=== PATIENT | male | born 1940 | race Caucasian/White ===

== ENCOUNTER → 2018-11-14 | Outpatient (CLI) | payer MEDICARE, BC ==
--- NOTE | 2018-11-14 14:39 | KCIC ---
Bilateral diagnostic digital mammograms: Reason for examination: Lump behind left nipple with pain for 4 weeks. Parkinson's disease. Interpretation is made with the benefit of CAD. Examination was technically limited by patient's physical condition. The skin and nipples show no abnormalities. No abnormal lymph nodes are seen. The breast parenchyma is predominantly fatty. (Breast density: Category A.) There is moderate soft tissue density in the retroareolar position bilaterally which is consistent with gynecomastia. There are no suspicious calcifications or architectural distortions. Impression: Moderate soft tissue density in the retroareolar positions bilaterally which would be consistent with moderate gynecomastia. Ultrasound to follow. BI-RADS Category: Incomplete. Needs additional imaging evaluation. Bilateral breast ultrasound: Bilateral whole breast ultrasound including evaluation of all 4 quadrants and the retroareolar and axillary regions of both breasts was performed. There is moderate bilateral gynecomastia. The gynecomastia on the right shows no abnormal vascularity. Centrally in the area of gynecomastia on the left however, there is some focal increased vascularity and slight decrease in the echogenicity. Further evaluation of this area with ultrasound-guided biopsy is recommended to exclude an underlying lesion within the gynecomastia. No other focal lesions are seen. No abnormal appearing lymph nodes are seen in either axilla. IMPRESSION: Moderate bilateral gynecomastia. Increased vascularity and decreased echogenicity centrally within the area of gynecomastia on the left. Recommend further evaluation of the left breast with ultrasound-guided biopsy at this site. BI-RADS Category 4: Suspicious. I have discussed these findings with the patient's career information specialist, Ruba, and the patient's nurse practitioner, Jeanine Razo, was notified about these findings on 11/14/2018 at 1432. "Our facility is accredited by the [employer] Mammography [employer]." This patient's information has been entered into a reminder system for the patient to be notified with the results of the examination and a target date for the next mammogram. Electronically signed by: Kristie Amanda MD (11/14/2018 2:34 PM) [id number]
== END | disposition home or self-care (01) ==
LOC: KCIC MAMMO 12:38
PROVIDERS: ATTEND Family Medicine
DX: N62 Hypertrophy of breast (principal); G20 Parkinson's disease
CPT/HCPCS: 76641; 77066